=== PATIENT | female | born 1990 | race African-American/Black ===

== ENCOUNTER 2017-05-21 17:42 | Emergency (ER) | payer OTHER ==
[~2017-05-21] VITALS: Ht 157.5 cm; Wt 47.6 kg
[~2017-05-21 17:42] MED LIST: NORCO 5-325 TA1 EACH PO
[2017-05-21] MEDS ORDERED: NORVASC5 MG PO (18:49)
[2017-05-21 19:31] VITALS: BP 130/76
[2017-05-21 20:07] LABS: HIV-1 P24 AG Nonreactive (Nonreactive)
[2017-05-22 03:15] LABS: HEPATITIS C VIRUS AB <0.1 (0.0-0.9)
== END 2017-05-21 19:32 | disposition home or self-care (01) ==
LOC: ER 17:42
PROVIDERS: Physician Assistant
DX: S69.82XA Other specified injuries of left wrist, hand and finger(s), initial encounter (principal); F10.99 Alcohol use, unspecified with unspecified alcohol-induced disorder; W46.0XXA Contact with hypodermic needle, initial encounter; Y93.89 Activity, other specified; Y92.89 Other specified places as the place of occurrence of the external cause; Y99.0 Civilian activity done for income or pay